=== PATIENT | female | born 1985 | race Caucasian/White ===

== ENCOUNTER 2017-05-16 23:45 | Emergency (ER) | payer MEDICAID ==
[~2017-05-16] VITALS: Ht 165.1 cm; Wt 72.6 kg
[~2017-05-16 23:45] MED LIST: FERR325E14 PO; IBUP-974 PO; PREN-385 PO
[2017-05-16 23:57] VITALS: BP 106/66
--- NOTE | 2017-05-17 00:39 | NUR ---
PT TAKEN TO OF
--- NOTE | 2017-05-17 00:40 | NUR ---
31 Y/O F W/C/O BILATERAL GREAT TOE PAIN/SWELLING SINCE SUNDAY. TOES SLIGHTLY SWELLING, NO REDNESS PRESENT. ER MADE AWARE.
--- NOTE | 2017-05-17 00:43 | NUR ---
Patient being evaluated by Dr. Pretty in overflow.
[2017-05-17 01:18] VITALS: BP 112/63
--- NOTE | 2017-05-17 01:18 | NUR ---
Patient discharged with v/s stable. Written and verbal after care instructions given and explained. Patient alert, oriented and verbalized understanding of instructions. Ambulatory with steady gait. All questions addressed prior to discharge. ID band removed. Patient advised to follow up with PMD IN 24 TO 48 HRS OR RETURN TO ER IF CONDITION WORSENS. Rx of LAMISIL AT 1% ATHLETES FOOT TOPICAL CREAM AND LAMISIL TABS given. Patient educated on indication of medication including possible reaction and side effects. Opportunity to ask questions provided and answered.
== END 2017-05-17 01:18 | disposition home or self-care (01) ==
LOC: MED 23:45
DX: B35.1 Tinea unguium (principal); Z79.899 Other long term (current) drug therapy
CPT/HCPCS: 99283

== ENCOUNTER 2018-09-29 10:12 | Observation (INO) | payer MEDICAID ==
[~2018-09-29] VITALS: Ht 165.1 cm; Wt 86.2 kg
--- NOTE | 2018-09-29 13:46 | NUR ---
PATIENT HAS BEEN SCREENED AND CATEGORIZED LOW NUTRITION RISK. PATIENT WILL BE SEEN WITHIN 7 DAYS OF ADMISSION. 10/06/18 HEMANT EID MBA, RD
== END 2018-09-29 15:17 | disposition home or self-care (01) ==
LOC: MLD 10:12
PROVIDERS: ADMIT Obstetrics & Gynecology; ATTEND Obstetrics & Gynecology
DX: O62.9 Abnormality of forces of labor, unspecified (principal); Z3A.38 38 weeks gestation of pregnancy
CPT/HCPCS: 76805; G0378; Q0092; 59025

== ENCOUNTER 2018-10-07 17:49 | Observation (INO) | payer MEDICAID ==
[~2018-10-07] VITALS: Ht 165.1 cm; Wt 86.2 kg
== END 2018-10-07 22:30 | disposition home or self-care (01) ==
LOC: MLD 17:49
PROVIDERS: ADMIT Obstetrics & Gynecology; ATTEND Obstetrics & Gynecology
DX: O62.9 Abnormality of forces of labor, unspecified (principal); Z3A.38 38 weeks gestation of pregnancy
CPT/HCPCS: 76815; G0378; J7120; Q0092

== ENCOUNTER 2018-10-09 15:11 | Inpatient (IN) | payer MEDICAID ==
[~2018-10-09] VITALS: Ht 160 cm; Wt 86.6 kg
[~2018-10-09 15:11] MED LIST changes: -FERR325E14 PO; -IBUP-974 PO
[2018-10-09 16:15] VITALS: BP 116/64
[2018-10-09 17:17] LABS: BASOPHILS % (AUTO) 0.2 % (0.0-2.0); EOSINOPHILS # (AUTO) 0.1 K/uL (0-0.4); EOSINOPHILS % (AUTO) 0.7 % (0.0-4.0); HEMATOCRIT 36.5 % (36-48); HEMOGLOBIN 12.1 g/dL (12.0-16.0); LYMPHOCYTES % (AUTO) 24.9 % (20.5-51.1); MEAN CORPUSCULAR HEMOGLOBIN 29 pg (27-31); MEAN CORPUSCULAR HGB CONC 33 g/dL (33-37); MEAN CORPUSCULAR VOLUME 86.5 fL (80-94); MONOCYTES # (AUTO) 0.6 K/uL (0.8-1.0); MONOCYTES % (AUTO) 7.5 % (1.7-9.3); NEUTROPHILS # (AUTO) 5.3 K/uL (1.8-7.7); NEUTROPHILS % (AUTO) 66.7 % (42.2-75.2); PLATELET COUNT (AUTO) 256 K/uL (140-450); RED BLOOD CELL COUNT(AUTO) 4.22 MIL/uL (4.20-5.40); RED CELL DISTRIBUTION WIDTH 14.5 % (11.6-13.7); WHITE BLOOD COUNT (AUTO) 7.9 K/uL (4.8-10.8)
[2018-10-09 17:30] LABS: APPEARANCE,URINE CLEAR (CLEAR); BILIRUBIN,URINE NEGATIVE (NEGATIVE); BLOOD, URINE NEGATIVE (NEGATIVE); COLOR,URINE YELLOW (YELLOW); LEUKOCYTE ESTERASE ,URINE NEGATIVE (NEGATIVE); NITRITE, URINE NEGATIVE (NEGATIVE); PH,URINE 5.5 (5.0-9.0); UGLUCOSE NEGATIVE (NEGATIVE)
[2018-10-09 17:42] LABS: ANION GAP 15.3 (8-16); CARBON DIOXIDE 22.3 mmol/L (21-32); CREATININE 0.6 mg/dL (0.6-1.3); POTASSIUM 3.6 mmol/L (3.5-5.1)
[2018-10-09 17:45] LABS: PROTHROMBIN TIME 8.8 secs (10.8-13.4)
[2018-10-09 17:47] LABS: ALBUMIN 2.5 g/dL (3.4-5.0); TOTAL BILIRUBIN 0.3 mg/dL (0.0-1.0)
[2018-10-09] MEDS: LACTATED RINGERS 1,000 ML IV SCH ×2 (18:22→18:23)
[2018-10-09] MEDS ORDERED: CITRIC ACID/SODIUM CITRATE 30 ML UDC ONE (19:09)
[2018-10-09] MEDS ORDERED: OXYTOCIN 10 UNITS/ML VIAL ONE (19:32)
[2018-10-09] MEDS ORDERED: BUPIVACAINE-MPF 0.75% 10 ML VIAL INJ ONE (19:32)
[2018-10-09] MEDS ORDERED: fentaNYL 0.05 MG/ML VIAL ONE (19:51)
[2018-10-09] MEDS ORDERED: MORPHINE PRES FREE 2 MG/2 ML 2 mL UD SYRINGE ONE (19:52)
[2018-10-09] MEDS ORDERED: ceFAZolin 1,000 MG VIAL IVP ONE (20:00)
[2018-10-09] MEDS ORDERED: diphenhydrAMINE 50 MG/ML VIAL IVP PRN (20:15)
[2018-10-09] MEDS ORDERED: NALOXONE 0.4 MG/ML VIAL IVP PRN ×3 (20:15)
[2018-10-09] MEDS ORDERED: KETOROLAC 30 MG/ML VIAL IVP PRN ×2 (20:15→23:10)
[2018-10-09] MEDS ORDERED: ONDANSETRON 4 MG/2 ML VIAL IVP PRN (20:15)
[2018-10-09] MEDS ORDERED: NALBUPHINE 10 MG/ML AMP IVP PRN (20:15)
[2018-10-09] MEDS ORDERED: CARBOPROST 250 MCG/ML AMP IM ONE (21:10)
[2018-10-09] MEDS ORDERED: HYDROmorphone 1 MG/ML AMP IVP PRN (23:10)
[2018-10-09] MEDS ORDERED: MEASLES, MUMPS, AND RUBELLA 1 VIAL SQVAC PRN (23:10)
[2018-10-09] MEDS ORDERED: OXYTOCIN 20 UNITS/LR PREMIX 1,000 ML IV ONE (23:24)
[2018-10-09] MEDS: OXYTOCIN 20 UNITS in LACTATED RINGERS 1,000 ML IV SCH (23:47)
[2018-10-10] MEDS ORDERED: ONDANSETRON 4 MG/2 ML VIAL IVP PRN
[2018-10-10] MEDS: OXYTOCIN 20 UNITS in LACTATED RINGERS 1,000 ML IV SCH ×2 (07:42→15:54)
[2018-10-10] MEDS ORDERED: OXYTOCIN 10 UNITS/ML VIAL ONE (07:44)
[2018-10-10 09:01] LABS: BASOPHILS % (AUTO) 0.2 % (0.0-2.0); EOSINOPHILS % (AUTO) 0.5 % (0.0-4.0); PLATELET COUNT (AUTO) 197 K/uL (140-450)
[2018-10-10 09:12] LABS: HEMATOCRIT 29.4 % (36-48); HEMOGLOBIN 10.1 g/dL (12.0-16.0); LYMPHOCYTES # (AUTO) 1.9 K/uL (2.5-16.5); LYMPHOCYTES % (AUTO) 20.9 % (20.5-51.1); MEAN CORPUSCULAR HEMOGLOBIN 30 pg (27-31); MEAN CORPUSCULAR HGB CONC 35 g/dL (33-37); MONOCYTES # (AUTO) 0.7 K/uL (0.8-1.0); MONOCYTES % (AUTO) 8.2 % (1.7-9.3); NEUTROPHILS # (AUTO) 6.4 K/uL (1.8-7.7); NEUTROPHILS % (AUTO) 70.2 % (42.2-75.2); RED BLOOD CELL COUNT(AUTO) 3.42 MIL/uL (4.20-5.40); RED CELL DISTRIBUTION WIDTH 14.3 % (11.6-13.7); WHITE BLOOD COUNT (AUTO) 9.1 K/uL (4.8-10.8)
--- NOTE | 2018-10-10 10:56 | NUR ---
AWAKE AND ALERT TOLERATED INCENTIVE SPIROMETRY THERAPY WELL WITHOUT INCIDENT ENCOURAGED PATIENT WITH ACKNOWLEDGEMENT TO USE INCENTIVE SPIROMETRY EVERY 1-2 HOURS WHILE AWAKE
[2018-10-10] MEDS ORDERED: ACETAMINOPHEN 325 MG TAB PO PRN (22:00)
[2018-10-11] MEDS ORDERED: SIMETHICONE 80 MG TAB.CHEW PO SCH (09:00)
[2018-10-11] MEDS ORDERED: SODIUM PHOSPHATE 118 ML ENEM RC SCH (09:00)
[2018-10-11] MEDS: BISACODYL 5 MG TABEC PO PRN (10:01)
[2018-10-11] MEDS: DOCUSATE SODIUM 100 MG GELCAP PO SCH (10:01)
[2018-10-11] MEDS: IBUPROFEN 600 MG TAB PO PRN ×3 (10:01→23:52)
[2018-10-12] MEDS: DOCUSATE SODIUM 100 MG GELCAP PO SCH (09:10)
[2018-10-12] MEDS: BISACODYL 5 MG TABEC PO PRN (09:11)
[2018-10-12] MEDS: IBUPROFEN 600 MG TAB PO PRN (09:12)
[2018-10-12] MEDS ORDERED: FERR325E14 PO (13:39)
[2018-10-12] MEDS ORDERED: IBUP-1842 PO (13:41)
== END 2018-10-12 14:45 | disposition home or self-care (01) | DRG 540 ==
LOC: MLD 15:11 → OBSVTOIN 15:11 → MLD 15:12 → MFCC 23:10
PROVIDERS: ADMIT Obstetrics & Gynecology; ATTEND Obstetrics & Gynecology
PROC: 3E0234Z Introduction of Serum, Toxoid and Vaccine into Muscle, Percutaneous Approach (ICD-10-PCS; 2018-10-09)
PROC: 10D00Z1 Extraction of Products of Conception, Low, Open Approach (ICD-10-PCS; principal; 2018-10-09 19:30)
DX: O34.211 Maternal care for low transverse scar from previous cesarean delivery (principal); Z23 Encounter for immunization; Z37.0 Single live birth; Z3A.39 39 weeks gestation of pregnancy
CPT/HCPCS: 36415; 51702; 80053; 81003; 85025; 85610; 85730; 86592; 86886; 86900; 86901; 87086; 90715; J0690; J1885; J2270; J2590; J3010; J3490; J7060; J7120